=== PATIENT | female | born 1940 | race Caucasian/White ===

== ENCOUNTER 2017-10-13 15:18 | Emergency (ER) | payer OTHER ==
[~2017-10-13] VITALS: Ht 170.2 cm; Wt 63.5 kg
[~2017-10-13 15:18] MED LIST: ALEVE220 MG PO; CALCIUM + D SO1 EACH; CIPROFLOXACIN500 M1 PO; CRESTOR10 MG; FISH OIL 1,001000 M2 PO; UNICOMPLEX M TA1 TA1 PO; VITAMIN D1000 UNI1 PO; ZOFRAN ODT4 MG PO
[2017-10-13] MEDS ORDERED: PRAVACHOL20 MG PO (15:25)
[2017-10-13 15:48] VITALS: BP 121/48
[2017-10-13 15:51] LABS: ABSOLUTE NEUTROPHILS 4.4 thou/uL (1.4-8.2); BASOPHILS 1.2 % (0.0-2.0); EOSINOPHILS 1.8 % (0.0-3.0); HEMATOCRIT 39.6 % (37.0-47.0); HEMOGLOBIN 13.2 gm/dL (12.0-15.0); LYMPHOCYTES 27.2 % (24.0-44.0); MCH 29.9 pg (26.0-34.0); MCHC 33.3 g/dL (28.0-37.0); MCV 89.7 fL (80.0-100.0); MONOCYTES 9.4 % (1.0-8.0); PLATELET COUNT 324 thou/uL (150-400); POLYS 60.4 % (36.0-66.0); RBC 4.42 mil/uL (4.20-5.00); RDW 13.6 % (10.5-14.5); WBC 7.2 thou/uL (4.0-11.0)
[2017-10-13 15:56] LABS: POTASSIUM 3.9 mmol/L (3.5-5.1)
[2017-10-13 15:59] LABS: URINE BILIRUBIN NEGATIVE (Negative); URINE BLOOD NEGATIVE (Negative); URINE CLARITY CLEAR; URINE COLOR YELLOW; URINE GLUCOSE-RANDOM* NEGATIVE (Negative); URINE KETONES NEGATIVE (Negative); URINE LEUKOCYTES-REFLEX NEGATIVE (Negative); URINE NITRITE-REFLEX NEGATIVE (Negative); URINE PROTEIN (DIPSTICK) NEGATIVE (Negative); URINE SPECIFIC GRAVITY <= 1.005 (1.005-1.035); URINE UROBILINOGEN 0.2 E.U./dl (0.2-1.0)
[2017-10-13 16:02] LABS: ALBUMIN 3.9 g/dL (3.4-5.0); TOTAL BILIRUBIN 0.3 mg/dL (<0.1-1.0)
[2017-10-13] MEDS ORDERED: SIMETHICON CHEW80 M1 PO (16:55)
[2017-10-13] MEDS ORDERED: GAS RELIEF80 MG PO (16:56)
== END 2017-10-13 17:00 | disposition home or self-care (01) ==
LOC: ER 15:18
PROVIDERS: Physician Assistant
DX: R14.0 Abdominal distension (gaseous) (principal); R10.30 Lower abdominal pain, unspecified; R10.10 Upper abdominal pain, unspecified; K21.9 Gastro-esophageal reflux disease without esophagitis; E78.00 Pure hypercholesterolemia, unspecified; Z90.49 Acquired absence of other specified parts of digestive tract; Z88.8 Allergy status to other drugs, medicaments and biological substances

== ENCOUNTER → 2017-12-21 | Outpatient (CLI) | payer OTHER ==
[~2017-12-21] MED LIST changes: +GAS RELIEF80 MG PO; +PRAVACHOL20 MG PO; +SIMETHICON CHEW80 M1 PO
== END ==
LOC: RAD 11:27
DX: R10.9 Unspecified abdominal pain (principal); M41.86 Other forms of scoliosis, lumbar region; R19.7 Diarrhea, unspecified; R14.0 Abdominal distension (gaseous); E78.5 Hyperlipidemia, unspecified; K21.9 Gastro-esophageal reflux disease without esophagitis; Z90.49 Acquired absence of other specified parts of digestive tract

== ENCOUNTER → 2018-10-13 | Outpatient (CLI) | payer OTHER | LOC: ULTRA 09:12 | DX: R93.89 Abnormal findings on diagnostic imaging of other specified body structures (principal) ==

== ENCOUNTER → 2018-11-08 | Outpatient (CLI) | payer OTHER | LOC: RAD 12:00 | DX: R05 Cough (principal); R06.02 Shortness of breath ==

== ENCOUNTER 2019-02-14 15:52 | Emergency (ER) | payer OTHER ==
[~2019-02-14] VITALS: Ht 170.2 cm; Wt 65.8 kg
[2019-02-14 17:28] LABS: ABSOLUTE NEUTROPHILS 7.4 thou/uL (1.4-8.2); BASOPHILS 0.9 % (0.0-2.0); EOSINOPHILS 0.3 % (0.0-3.0); HEMATOCRIT 39.3 % (37.0-47.0); HEMOGLOBIN 12.9 gm/dL (12.0-15.0); LYMPHOCYTES 11.1 % (24.0-44.0); MCH 29.9 pg (26.0-34.0); MCHC 32.7 g/dL (28.0-37.0); MCV 91.3 fL (80.0-100.0); MONOCYTES 5.4 % (1.0-8.0); PLATELET COUNT 382 thou/uL (150-400); POLYS 82.3 % (36.0-66.0); RBC 4.31 mil/uL (4.20-5.00); RDW 13.7 % (10.5-14.5)
[2019-02-14 17:32] LABS: URINE BILIRUBIN NEGATIVE (Negative); URINE BLOOD TRACE (Negative); URINE CLARITY CLEAR; URINE COLOR YELLOW; URINE GLUCOSE-RANDOM* NEGATIVE (Negative); URINE KETONES NEGATIVE (Negative); URINE LEUKOCYTES-REFLEX TRACE (Negative); URINE NITRITE-REFLEX NEGATIVE (Negative); URINE PROTEIN (DIPSTICK) NEGATIVE (Negative); URINE UROBILINOGEN 0.2 E.U./dl (0.2-1.0)
[2019-02-14 17:37] LABS: CALCIUM 9.8 mg/dL (8.5-10.1); POTASSIUM 4.1 mmol/L (3.5-5.1)
[2019-02-14] MEDS ORDERED: TRAMADOL 50 MG50 MG PO (19:19)
[2019-02-14] MEDS ORDERED: AMOXICILLIN875 MG PO (19:19)
[2019-02-14 19:35] VITALS: BP 135/71
== END 2019-02-14 19:35 | disposition home or self-care (01) ==
LOC: ER 15:52
PROVIDERS: Emergency Medicine
DX: R51 Headache (principal); J02.9 Acute pharyngitis, unspecified; M79.10 Myalgia, unspecified site; K21.9 Gastro-esophageal reflux disease without esophagitis; E78.00 Pure hypercholesterolemia, unspecified; Z88.8 Allergy status to other drugs, medicaments and biological substances; Z79.899 Other long term (current) drug therapy

== ENCOUNTER → 2020-01-02 | Outpatient (CLI) | payer OTHER ==
[~2020-01-02] MED LIST changes: +AMOXICILLIN875 MG PO; +TRAMADOL 50 MG50 MG PO
== END ==
LOC: ULTRA 09:25
PROVIDERS: ATTEND Internal Medicine
DX: N28.1 Cyst of kidney, acquired (principal); Z90.49 Acquired absence of other specified parts of digestive tract